=== PATIENT | male | born 1960 | race Caucasian/White ===

== ENCOUNTER 2017-01-07 07:26 | Emergency (ER) | payer OTHER ==
[2017-01-07 07:41] VITALS: BP 135/80
--- NOTE | 2017-01-07 07:49 | UC ---
Ear Complaint HPI - HPI Summary HPI Summary: left ear pain x 3 days feels plugged , + one week of nasal congestion , no cough , no fever or chills - History of Current Complaint Chief Complaint: UCEar Stated Complaint: LEFT EAR PAIN Time Seen by Provider: 01/07/17 07:42 Hx Obtained From: Patient Onset/Duration: Gradual Onset, Lasting Days - 3, Still Present Severity Initially: Moderate Severity Currently: Moderate Aggravating Factors: Nothing Alleviating Factors: Nothing Associated Signs/Symptoms: Positive: URI Symptoms. Negative: Discharge, Hearing Loss, Foreign Body Sensation, Trauma to Ear, Swelling @ - Allergies/Home Medications Allergies/Adverse Reactions: Allergies Allergy/AdvReac Type Severity Reaction Status Date / Time hayfever Allergy Eyes Uncoded 01/17/16 11:57 Itchy/Swollen/Red/Watery Home Medications: Home Medications Atorvastatin* [Lipitor*] 20 mg PO DAILY 01/07/17 [History Confirmed 01/07/17] PMH/Surg Hx/FS Hx/Imm Hx Previously Healthy: Yes - Surgical History Surgical History: Yes Surgery Procedure, Year, and Place: appendectomy. C6-C7 fusion/herniated disc - Family History Known Family History: Positive: Hypertension - Social History Alcohol Use: Weekly Alcohol Amount: 10 beer or wine Substance Use Type: None Smoking Status (MU): Current Some Day Smoker Type: Cigars Amount Used/How Often: on golf course Review of Systems Constitutional: Negative Skin: Negative Eyes: Negative ENT: Ear Ache - left ear, Nasal Discharge Respiratory: Negative Cardiovascular: Negative Gastrointestinal: Negative All Other Systems Reviewed And Are Negative: Yes Physical Exam Triage Information Reviewed: Yes Appearance: Well-Appearing, No Pain Distress, Well-Nourished Vital Signs: Initial Vital Signs Temp 97.6 F 01/07/17 07:30 Pulse 64 01/07/17 07:30 Resp 16 01/07/17 07:30 BP 135/80 01/07/17 07:30 Pulse Ox 98 01/07/17 07:30 Vital Signs Reviewed: Yes Eyes: Positive: Conjunctiva Clear ENT: Positive: Normal ENT inspection, Hearing grossly normal, Pharynx normal, Nasal congestion, TM bulging - left ear, TM dull - left ear, TM red - left ear Neck: Positive: Supple, Nontender, No Lymphadenopathy Respiratory: Positive: Chest non-tender, Lungs clear, Normal breath sounds Cardiovascular: Positive: RRR, No Murmur, Pulses Normal Ear Complaint Course/Dx - Differential Dx/Diagnosis Provider Diagnoses: otitis media left ear Discharge - Discharge Plan Condition: Stable Disposition: HOME Prescriptions: Amoxicillin (*) [Amoxicillin 875 MG (*)] 875 mg PO BID #20 tab Patient Education Materials: Otitis Media (ED) Referrals: Antonio Bueno MD [Primary Care Provider] - If Needed
== END 2017-01-07 07:57 | disposition home or self-care (01) ==
LOC: UCCORT 07:26
DX: H66.92 Otitis media, unspecified, left ear (principal)
CPT/HCPCS: 99212; G0463

== ENCOUNTER 2017-01-10 15:30 | Emergency (ER) | payer OTHER ==
[2017-01-10 16:21] VITALS: BP 126/83
--- NOTE | 2017-01-10 16:33 | UC ---
Ear Complaint HPI - HPI Summary HPI Summary: The patient comes in today for: 1. Plugged left ear: Onset: 6 days ago--seen 3 days ago. Palliative/provocative: Popping his ears makes it better. Quality: Congestion of the left ear. Region: Left ear. Severity: 0/10 pain Time: Constant. Associated symptoms: Previous treatment: When he was seen 3 days ago, he was told that he had an ear infection. But, even though he is not having any pain, he states that he has poor hearing. No discharge from the ear. Fevers: None. * - History of Current Complaint Chief Complaint: UCGeneralIllness Stated Complaint: LEFT EAR PAIN Time Seen by Provider: 01/10/17 16:24 Hx Obtained From: Patient - Allergies/Home Medications Allergies/Adverse Reactions: Allergies Allergy/AdvReac Type Severity Reaction Status Date / Time hayfever Allergy Eyes Uncoded 01/10/17 16:15 Itchy/Swollen/Red/Watery Home Medications: Home Medications Fluticasone NASAL SPRAY 50MCG* [Flonase NASAL SPRAY 50MCG*] 2 spray BOTH NARES DAILY 01/10/17 [History Confirmed 01/10/17] guaiFENesin ER TAB [Mucinex*] 600 mg PO BID PRN 01/10/17 [History Confirmed ] PMH/Surg Hx/FS Hx/Imm Hx Previously Healthy: No Endocrine History Of: Reports: Dyslipidemia Denies: Diabetes, Thyroid Disease, Hyperthyroidism, Hypothyroidism Cardiovascular History Of: Denies: Cardiac Disorders, Hypertension, Pacemaker/ICD, Myocardial Infarction , Congestive Heart Failure, Atrial Fibrillation, Deep Vein Thrombosis, Bleeding Disorders Respiratory History Of: Denies: COPD, Asthma, Bronchitis, Pneumonia, Pulmonary Embolism GI/ History Of: Denies: Gastroesophageal Reflux, Ulcer, Gastrointestinal Bleed, Gall Bladder Disease, Kidney Stones, Diverticulitis, Renal Disease, Urosepsis Neurological History Of: Denies: TIA, CVA, Dementia, Seizures, Migraine Psychological History Of: Denies: Anxiety, Depression, Bipolar Disorder, Schizophrenia, Post Traumatic Stress Disorder Cancer History Of: Denies: Lung Cancer, Colorectal Cancer, Breast Cancer, Prostate Cancer, Cervical Cancer Other History Of: Negative For: HIV, Hepatitis B, Hepatitis C, Anticoagulant Therapy - Surgical History Surgical History: Yes Surgery Procedure, Year, and Place: appendectomy. C6-C7 fusion/herniated disc - Family History Known Family History: Positive: Cardiac Disease, Hypertension - Social History Occupation: Retired Alcohol Use: Weekly Alcohol Amount: 10 beer or wine Substance Use Type: None Smoking Status (MU): Former Smoker Type: Cigars Amount Used/How Often: on golf course Review of Systems Constitutional: Negative Skin: Negative Eyes: Negative ENT: Negative Respiratory: Negative Cardiovascular: Negative Gastrointestinal: Negative Genitourinary: Negative All Other Systems Reviewed And Are Negative: Yes Physical Exam Triage Information Reviewed: Yes Appearance: Well-Appearing, No Pain Distress, Well-Nourished Vital Signs: Initial Vital Signs Temp 98.1 F 01/10/17 16:17 Pulse 74 01/10/17 16:17 Resp 18 01/10/17 16:17 BP 126/83 01/10/17 16:17 Pulse Ox 97 01/10/17 16:17 Vital Signs Reviewed: Yes Eyes: Positive: Conjunctiva Clear. Negative: Discharge ENT: Positive: Hearing grossly normal, Other: - Right ear: TM quiroga and translucent with no canal erythema or edema. Left ear: The TM was quiroga, with no obvious air-fluid level. There was slight erythema, and midl retraction?. Negative: Pharyngeal erythema, Nasal congestion, Nasal drainage - Right ear: TM quiroga and translucent Left ear: Slightly more red, but no obvious air-fluid levels or markedly retracted TM. It was quiroga though. Mildly retracted., TM bulging, TM dull, TM red Dental: Negative: Gross Decay/Caries @, Dental Fracture @ Neck: Positive: Supple, Nontender, No Lymphadenopathy. Negative: Nuchal Rigidity Respiratory: Positive: Lungs clear, No respiratory distress, No accessory muscle use. Negative: Crackles, Wheezing Cardiovascular: Positive: RRR, No Murmur Abdomen Description: Positive: Nontender, No Organomegaly, Soft. Negative: Distended, Guarding Musculoskeletal: Positive: Strength Intact, ROM Intact, No Edema Neurological: Positive: Alert, Muscle Tone Normal Psychological: Positive: Age Appropriate Behavior, Consolable Skin: Negative: rashes, breakdown Ear Complaint Course/Dx - Course Course Of Treatment: Patient stated that he wanted to see DR. Cason. His address will be given to the patient. - Differential Dx/Diagnosis Provider Diagnoses: Resolving left otitis media with eustachian tube dysfunction. Discharge - Discharge Plan Condition: Stable Disposition: HOME Discharge Disposition Comment: Please continue with the antibiotics the previous physicain had given you. Patient Education Materials: Otitis Media (ED) Additional Instructions: Continue to "pop" your ears to help your ears re-inflate and to normalize your middle ear.
== END 2017-01-10 16:49 | disposition home or self-care (01) ==
LOC: UCCORT 15:30
DX: H66.92 Otitis media, unspecified, left ear (principal); H69.92 Unspecified Eustachian tube disorder, left ear; Z87.891 Personal history of nicotine dependence
CPT/HCPCS: 99211; G0463

== ENCOUNTER 2017-12-07 07:54 | Emergency (ER) | payer OTHER ==
[2017-12-07 08:20] VITALS: BP 130/83
--- NOTE | 2017-12-07 08:31 | UC ---
Lower Extremity/Ankle HPI - HPI Summary HPI Summary: Right knee and right elbow fluid and swelling. He has been doing tile work and kiel and this has been going on for a few weeks, the fluid started about threee days ago. No fever, tenderness, redness. - History of Current Complaint Chief Complaint: UCUpperExtremity Stated Complaint: RT ELBOW COMP Time Seen by Provider: 12/07/17 08:23 Hx Obtained From: Patient Onset/Duration: Gradual Onset, Lasting Days Severity Initially: Mild Severity Currently: Moderate Pain Intensity: 0 Aggravating Factor(s): Nothing Alleviating Factor(s): Nothing Able to Bear Weight: Yes - Allergies/Home Medications Allergies/Adverse Reactions: Allergies Allergy/AdvReac Type Severity Reaction Status Date / Time hayfever Allergy Eyes Uncoded 12/07/17 08:10 Itchy/Swollen/Red/Watery Home Medications: Home Medications Ibuprofen 800 mg PO DAILY PRN 12/07/17 [History Confirmed 12/07/17] PMH/Surg Hx/FS Hx/Imm Hx Previously Healthy: Yes Other History Of: Negative For: HIV, Hepatitis B, Hepatitis C, Anticoagulant Therapy - Surgical History Surgical History: Yes Surgery Procedure, Year, and Place: appendectomy. C6-C7 fusion/herniated disc - Family History Known Family History: Positive: Cardiac Disease, Hypertension - Social History Alcohol Use: Weekly Alcohol Amount: 10 beer or wine Substance Use Type: None Smoking Status (MU): Former Smoker Type: Cigars Amount Used/How Often: on golf course Review of Systems Musculoskeletal: Other: - fulid swelling. All Other Systems Reviewed And Are Negative: Yes Physical Exam Triage Information Reviewed: Yes Appearance: Well-Appearing, No Pain Distress, Well-Nourished Vital Signs: Initial Vital Signs Temp 98.2 F 12/07/17 08:12 Pulse 59 12/07/17 08:12 Resp 16 12/07/17 08:12 BP 130/83 12/07/17 08:12 Pulse Ox 98 12/07/17 08:12 Vital Signs Reviewed: Yes Eyes: Positive: Conjunctiva Clear ENT: Positive: Normal ENT inspection Neck: Positive: Supple, Nontender, No Lymphadenopathy Respiratory: Positive: Decreased breath sounds. Negative: Respiratory distress , Accessory muscle use Cardiovascular: Positive: Brisk Capillary Refill Abdomen Description: Negative: Distended Musculoskeletal Exam: Other - right elbow and right knee soft fluid collections. no redness and not hot or tender. Neurological: Positive: Alert, Muscle Tone Normal. Negative: Fatigued Skin: Negative: rashes Lower Extremity Course/Dx - Differential Dx/Diagnosis Provider Diagnoses: bursitis right elbow and right knee. Discharge - Sign-Out/Discharge Documenting (check all that apply): Discharge - Discharge Plan Condition: Good Disposition: HOME Patient Education Materials: Elbow Bursitis (ED), Knee Bursitis (ED) Referrals: Antonio Bueno MD [Primary Care Provider] - - Billing Disposition and Condition Condition: GOOD Disposition: HOME
== END 2017-12-07 08:33 | disposition home or self-care (01) ==
LOC: UCCORT 07:54
DX: M71.9 Bursopathy, unspecified (principal); Z87.891 Personal history of nicotine dependence
CPT/HCPCS: 99211; G0463

== ENCOUNTER 2018-01-21 09:00 | Emergency (ER) | payer OTHER ==
[2018-01-21 09:44] VITALS: BP 133/62
--- NOTE | 2018-01-21 10:10 | UC ---
Shoulder Pain HPI - HPI Summary HPI Summary: About 10 days ago patient was dragging a seed cookie padder behind his lawnmower with his left hand and arm out reached behind him. the next morning awoke with left scapular and shoulder pain,does have a single point of tenderness in his medial L scapula. Patient denies chest pain or pressure denies shortness of breath activity intolerance orthopnea nausea vomiting fatigue. - History of Current Complaint Chief Complaint: UCBackPain Stated Complaint: SHOULDER PAIN (L) Time Seen by Provider: 01/21/18 10:07 Hx Obtained From: Patient Onset/Duration: Sudden Onset, Lasting Days - 10, Still Present, Other - Get some relief with ibuprofen had some relief with using one of his 's muscle relaxers Timing: Constant Location Of Pain: Is Discrete @ Pain Intensity: 7 Pain Scale Used: 0-10 Numeric - And OVER the Character: Spasmodic, Stiffness Aggravating Factor(s): Movement Alleviating Factor(s): OTC Meds Associated Signs And Symptoms: Positive: Numbness/Tingling Related History: Dominant Hand Right - Allergies/Home Medications Allergies/Adverse Reactions: Allergies Allergy/AdvReac Type Severity Reaction Status Date / Time hayfever Allergy Eyes Uncoded 01/21/18 09:44 Itchy/Swollen/Red/Watery PMH/Surg Hx/FS Hx/Imm Hx Previously Healthy: Yes Other History Of: Negative For: HIV, Hepatitis B, Hepatitis C, Anticoagulant Therapy - Surgical History Surgical History: Yes Surgery Procedure, Year, and Place: appendectomy. C6-C7 fusion/herniated disc - Family History Known Family History: Positive: Cardiac Disease, Hypertension - Social History Occupation: Retired Lives: With Family Alcohol Use: Weekly Alcohol Amount: 10 beer or wine Substance Use Type: None Smoking Status (MU): Former Smoker Type: Cigars Amount Used/How Often: on golf course Review of Systems Constitutional: Negative Skin: Negative Eyes: Negative ENT: Negative Respiratory: Negative Cardiovascular: Negative Gastrointestinal: Negative Genitourinary: Negative Motor: Negative Neurovascular: Negative Musculoskeletal: Arthralgia - left scapula Neurological: Negative Psychological: Negative Is Patient Immunocompromised?: No All Other Systems Reviewed And Are Negative: Yes Physical Exam Triage Information Reviewed: Yes Appearance: Well-Appearing, No Pain Distress - physical, Well-Nourished Vital Signs: Initial Vital Signs Temp 97.7 F 01/21/18 09:37 Pulse 59 01/21/18 09:37 Resp 16 01/21/18 09:37 BP 133/62 01/21/18 09:37 Pulse Ox 99 01/21/18 09:37 Vital Signs Reviewed: Yes Eye Exam: Normal Eyes: Positive: Conjunctiva Clear ENT Exam: Normal ENT: Positive: Normal ENT inspection, Hearing grossly normal. Negative: Trismus , Muffled voice, Hoarse voice Dental Exam: Normal Neck exam: Normal Neck: Positive: Supple, Nontender, No Lymphadenopathy Respiratory Exam: Normal Respiratory: Positive: Chest non-tender, Lungs clear, Normal breath sounds, No respiratory distress, No accessory muscle use Cardiovascular Exam: Normal Cardiovascular: Positive: RRR, No Murmur, Pulses Normal, Brisk Capillary Refill Musculoskeletal Exam: Normal Musculoskeletal: Positive: Strength Intact, ROM Intact - Does have an area of discrete discomfort on medial aspect of mid scapula, No Edema, Other: Neurological Exam: Normal Neurological: Positive: Alert, Muscle Tone Normal Psychological Exam: Normal Skin Exam: Normal Diagnostics - Radiology No standard instances Xray Interpretation: Positive (See Comments) Radiology Interpretation Completed By: Radiologist - Patient Name: NELIDA HARRISON Medical Record#: [id number] Ordering Physician: Marleen Bear MD Acct.#: [id number] : 1960 Age: 57 Sex: M Location: [facility] Exam Date: 01/21/181001 ADM Status: REG ER Order Information: SHOULDER LEFT 2+ VWS Accession Number: [id number] CPT: 83587 HISTORY: Left scapular pain COMPARISONS: None VIEWS: 4, Frontal internal rotation, external rotation, outlet, and axillary views of the left shoulder FINDINGS: BONE DENSITY: Normal. BONES: There is no displaced fracture. JOINTS: There is moderate osteoarthritis of the left AC joint. There is mild osteoarthritis of the glenohumeral joint. ALIGNMENT: There is no dislocation. SOFT TISSUES: Unremarkable. OTHER FINDINGS: The patient is status post anterior cervical fusion. IMPRESSION: OSTEOARTHRITIS. NO ACUTE OSSEOUS INJURY. IF SYMPTOMS PERSIST, RECOMMEND REPEAT IMAGING. <Electronically signed by Trace Orellana MD in [place]> 01/21/18 1035 Dictated By: Trace Orellana MD Dictated Date/Time: 01/21/18 1035 Transcribed Date/Time: 01/21/18 1034 Copy to: CC:Marleen Bear MD; Antonio Bueno MD Imaging - [facility] Imaging - [facility] Imaging - [facility] [address] [place] [address] ph ) ph ([phone]) ph ([phone]) - EKG Cardiac Rate: Bradycardia Cardiac Rhythm: Sinus: Normal Ectopy: None ST Segment: Normal Shoulder Course/Dx - Course Assessment/Plan: D/C ibuprofen changed MObic 7.5 mg twice a day and Flexeril 2 times a day when necessary follow with physical therapy primary care doctor as needed. - Differential Dx/Diagnosis Provider Diagnoses: left shoulder/scapula strain Discharge - Sign-Out/Discharge Documenting (check all that apply): Discharge/Admit/Transfer - Discharge Plan Condition: Stable Disposition: HOME Prescriptions: Cyclobenzaprine TAB* [Flexeril 10 MG TAB*] 10 mg PO BID PRN #20 tab PRN Reason: muscle spasm Meloxicam(NF) [Mobic(NF)] 7.5 mg PO BID #20 tab Patient Education Materials: Osteoarthritis (ED), Shoulder Pain (ED) Referrals: Antonio Bueno MD [Primary Care Provider] - 2 Weeks - Billing Disposition and Condition Condition: STABLE Disposition: HOME
--- NOTE | 2018-01-21 10:38 | RAD ---
HISTORY: Left scapular pain COMPARISONS: None VIEWS: 4, Frontal internal rotation, external rotation, outlet, and axillary views of the left shoulder FINDINGS: BONE DENSITY: Normal. BONES: There is no displaced fracture. JOINTS: There is moderate osteoarthritis of the left AC joint. There is mild osteoarthritis of the glenohumeral joint. ALIGNMENT: There is no dislocation. SOFT TISSUES: Unremarkable. OTHER FINDINGS: The patient is status post anterior cervical fusion. IMPRESSION: OSTEOARTHRITIS. NO ACUTE OSSEOUS INJURY. IF SYMPTOMS PERSIST, RECOMMEND REPEAT IMAGING.
== END 2018-01-21 11:11 | disposition home or self-care (01) ==
LOC: UCCORT 09:00
DX: S46.912A Strain of unspecified muscle, fascia and tendon at shoulder and upper arm level, left arm, initial encounter (principal); X50.0XXA Overexertion from strenuous movement or load, initial encounter; X50.1XXA Overexertion from prolonged static or awkward postures, initial encounter; Y93.89 Activity, other specified; Y92.007 Garden or yard of unspecified non-institutional (private) residence as the place of occurrence of the external cause; Z87.891 Personal history of nicotine dependence
CPT/HCPCS: 93005; 99212; G0463